=== PATIENT | male | born 1935 | race Caucasian/White ===

== ENCOUNTER → 2016-09-11 | Outpatient (CLI) | payer MEDICARE, BC | LOC: HEART 5 08:59 | DX: Z79.899 Other long term (current) drug therapy (principal) | CPT/HCPCS: 94010; 94729 ==

== ENCOUNTER 2016-10-06 14:09 | Emergency (ER) | payer MEDICARE, BC | END 2016-10-06 16:00 | LOC: ER1 14:09 | DX: S61.411A Laceration without foreign body of right hand, initial encounter (principal); I10 Essential (primary) hypertension; E11.9 Type 2 diabetes mellitus without complications; Z88.0 Allergy status to penicillin; Z88.2 Allergy status to sulfonamides; Z79.84 Long term (current) use of oral hypoglycemic drugs; W26.8XXA Contact with other sharp object(s), not elsewhere classified, initial encounter | CPT/HCPCS: 73130; 90471; 90715; 99284 ==

== ENCOUNTER → 2020-08-26 | Outpatient (CLI) | payer MEDICARE, BC | LOC: KOH-I 08:09 | DX: M54.12 Radiculopathy, cervical region (principal); M25.78 Osteophyte, vertebrae | CPT/HCPCS: 72125 ==

== ENCOUNTER → 2020-11-18 | Outpatient (CLI) | payer MEDICARE, BC | LOC: HEART 5 07:58 | DX: R06.02 Shortness of breath (principal); I20.9 Angina pectoris, unspecified; Z79.899 Other long term (current) drug therapy; I07.1 Rheumatic tricuspid insufficiency | CPT/HCPCS: 78452; 93306; 94060; 94729; A9502; J2785 ==

== ENCOUNTER 2021-10-22 10:11 | Emergency (ER) | payer MEDICARE, BC ==
[2021-10-22 11:37] LABS: HEMOGLOBIN 14.2 gm/dl (14.0-17.5); RED BLOOD COUNT 4.48 M/UL (4.20-5.50); WHITE BLOOD COUNT 4.6 K/UL (4.5-11.0)
[2021-10-22] MEDS ORDERED: MAXI-TUSS AC L473 ML PO (13:02)
[2021-10-22] MEDS ORDERED: ZITHROMAX TRI-500 MG PO (13:02)
== END 2021-10-22 13:22 | disposition home or self-care (01) ==
LOC: ER1 10:11
PROVIDERS: Emergency Medicine
DX: U07.1 COVID-19 (principal); I25.10 Atherosclerotic heart disease of native coronary artery without angina pectoris; I11.0 Hypertensive heart disease with heart failure; I50.9 Heart failure, unspecified; Z95.0 Presence of cardiac pacemaker; E78.00 Pure hypercholesterolemia, unspecified
CPT/HCPCS: 71045; 80053; 83880; 84484; 85025; 86140; 93005; 99285; U0002